=== PATIENT | female | born 1970 | race Two or more races ===

== ENCOUNTER 2016-05-29 11:44 | Emergency (ER) | payer SELFPAY ==
[2016-05-29] MEDS ORDERED: ONDANSETRON 4 MG/2 ML VIAL IVP ONE (12:10)
[2016-05-29] MEDS ORDERED: NS 1,000 ML IV ONE ×2 (12:10→13:06)
--- NOTE | 2016-05-29 12:27 | EDPHY ---
HPI/HX/ROS/PE/MDM Narrative: Chief complaint: Headache, neck pain HPI: 46-year-old type 2 diabetic presenting with 2 weeks of right-sided headache going into her right side of her neck and back. It is constant. It is an 8/10. Not had any fevers or chills. Has felt some lightheadedness associated with this but no fainting. Some nausea no vomiting. States that her blood sugars have been running very high recently. She has had increased urination but no urgency or pain. No chest pain, shortness of breath, or abdominal pain. She has been taking Advil at home with no significant relief. Denies any she head injuries or trauma. Pain was gradual in onset. Is been constant for the last 2 weeks. ROS: 10 point Review of Systems is negative except as noted in the HPI. Physical exam: Gen: Awake, Alert, No Distress HEENT: Nose: no rhinorrhea Eyes: PERRLA, EOMI Mouth: Moist mucosa She has tenderness in the muscular insertion of the trapezius on the right side of her occiput reproducing her presenting complaint. Neck: Supple, no JVD, no meningismus, right-sided trapezius and paraspinal tenderness to palpation reproducing her presenting complaint. No midline tenderness Chest: nontender, lungs clear to auscultation Heart: S1, S2 normal, no murmur Abd: Soft, non-tender, no guarding Back: no CVA tenderness, no midline tenderness Ext: no edema, non-tender Skin: no rash Neuro: CN II-XII intact, Sensation grossly intact, Strength 5/5 in bilateral upper and lower extremities ED Course: Patient is feeling significantly improved after 2 L of IV fluid and analgesia. States her headache is gone. I suspect that her headache the last 2 weeks secondary to her hyperglycemia and dehydration. Pain is Marta her light paraspinal neck. She has no meningismus. There are no features to suggest intracranial infection or bleed. She has no otherwise benign exam. She is hyperglycemic to 300s here. She has gotten 2 L of fluid. Will discharge with instructions to follow up with her primary care physician this week for better glycemic control. - Data Points Laboratory Results: Laboratory Results 05/29/16 12:20 05/29/16 12:20 05/29/16 12:20 WBC 6.09 10^3/uL (3.80-9.50) RBC 4.91 10^6/uL (4.18-5.33) Hgb 15.4 g/dL (12.6-16.3) Hct 42.7 % (38.0-47.0) MCV 87.0 fL (81.5-99.8) MCH 31.4 pg (27.9-34.1) MCHC 36.1 g/dL (32.4-36.7) RDW 11.7 % (11.5-15.2) Plt Count 230 10^3/uL (150-400) MPV 9.1 fL (8.7-11.7) Neut % (Auto) 52.7 % (39.3-74.2) Lymph % (Auto) 39.4 % (15.0-45.0) [place] % (Auto) 5.4 % (4.5-13.0) Eos % (Auto) 1.6 % (0.6-7.6) Baso % (Auto) 0.7 % (0.3-1.7) Nucleat RBC Rel Count 0.0 % (0.0-0.2) Absolute Neuts (auto) 3.21 10^3/uL (1.70-6.50) Absolute Lymphs (auto) 2.40 10^3/uL (1.00-3.00) Absolute Monos (auto) 0.33 10^3/uL (0.30-0.80) Absolute Eos (auto) 0.10 10^3/uL (0.03-0.40) Absolute Basos (auto) 0.04 10^3/uL (0.02-0.10) Absolute Nucleated RBC 0.00 10^3/uL (0-0.01) Immature Gran % 0.2 % (0.0-1.1) Immature Gran # 0.01 10^3/uL (0.00-0.10) Sodium 137 mEq/L (134-144) Potassium 4.5 mEq/L (3.5-5.2) Chloride 99 mEq/L (97-110) Carbon Dioxide 26 mEq/l (22-31) Anion Gap 12 mEq/L (8-16) BUN 13 mg/dL (7-23) Creatinine 0.7 mg/dL (0.6-1.0) Estimated GFR > 60 Glucose 366 H mg/dL (70-100) Calcium 9.4 mg/dL (8.5-10.4) Total Bilirubin 0.6 mg/dL (0.1-1.4) Conjugated Bilirubin 0.2 mg/dL (0.0-0.5) Unconjugated Bilirubin 0.4 mg/dL (0.0-1.1) AST 35 IU/L (14-46) ALT 66 H IU/L (9-52) Alkaline Phosphatase 140 H IU/L (38-126) Total Protein 7.3 g/dL (6.3-8.2) Albumin 4.0 g/dL (3.5-5.0) Medications Given: Discontinued Medications Fentanyl (Sublimaze) 50 mcg IVP ONCE ONE Stop: 05/29/16 12:40 Last Admin: 05/29/16 12:55 Dose: 50 mcg Sodium Chloride (Ns) 1,000 mls @ 0 mls/hr IV ONCE ONE PRN Reason: Wide Open Stop: 05/29/16 12:11 Last Admin: 05/29/16 12:25 Dose: 1,000 mls Sodium Chloride (Ns) 1,000 mls @ 0 mls/hr IV ONCE ONE PRN Reason: Wide Open Stop: 05/29/16 13:07 Last Admin: 05/29/16 13:06 Dose: 1,000 mls Morphine Sulfate (Morphine) 4 mg IVP ONCE ONE Stop: 05/29/16 12:25 Last Admin: 05/29/16 13:06 Dose: Not Given Ondansetron HCl (Zofran) 4 mg IVP EDNOW ONE Stop: 05/29/16 12:11 Last Admin: 05/29/16 12:25 Dose: 4 mg General Time Seen by Provider: 05/29/16 12:16 Initial Vital Signs: Initial Vital Signs Temperature (C) 36.8 C 05/29/16 11:45 Heart Rate 95 05/29/16 11:45 Respiratory Rate 18 05/29/16 11:45 Blood Pressure 155/107 H 05/29/16 11:45 O2 Sat (%) 95 05/29/16 11:45 O2 Delivery Mode Room Air Allergies/Adverse Reactions: acetaminophen [From Vicodin] Allergy (Verified 05/29/16 12:29) hydrocodone bitartrate [From Vicodin] Allergy (Verified 05/29/16 12:29) Home Medications: Medication Instructions Recorded Insulin Detemir [Levemir] 100 unit SQ 05/29/16 metFORMIN SR [Glucophage XR 500 mg 500 mg PO DAILY@1800 05/29/16 (*)] Departure - Departure Disposition: Home, Routine, Self-Care Clinical Impression: Headache, Dehydration, Hyperglycemia Condition: Good Instructions: Diabetic Hyperglycemia (ED), Managing Diabetes During Sick Days ( ED), Dehydration (ED), General Headache (ED) Additional Instructions: Follow up with your primary care physician this week for adjustments in your diabetes medications. Drink plenty of fluids. Return to the emergency depart for increasing pain, nausea, vomiting, fevers, chills, or any other concerns. Print Language: Maori
[2016-05-29] MEDS ORDERED: fentaNYL 100 MCG/2 ML INJ IVP ONE (12:39)
[2016-05-29 12:40] LABS: % IMMATURE GRANULYOCYTES 0.2 % (0.0-1.1); ABSOLUTE IMMATURE GRANULOCYTES 0.01 10^3/uL (0.00-0.10); ADD DIFF? NO; ADD MORPH? NO; ADD SCAN? NO; ATYPICAL LYMPHOCYTE FLAG 10 (0-99); FRAGMENT RBC FLAG 0 (0-99); HEMATOCRIT 42.7 % (38.0-47.0); HEMOGLOBIN 15.4 g/dL (12.6-16.3); LEFT SHIFT FLG 0 (0-99); LIPEMIA HEMOLYSIS FLAG 90 (0-99); MEAN CELL HEMOGLOBIN 31.4 pg (27.9-34.1); MEAN CELL HEMOGLOBIN CONCENTR. 36.1 g/dL (32.4-36.7); MEAN PLATELET VOLUME 9.1 fL (8.7-11.7); PLATELET CLUMPS FLAG 0 (0-99); PLATELET COUNT 230 10^3/uL (150-400); RED BLOOD CELL COUNT 4.91 10^6/uL (4.18-5.33); RED CELL DISTRIBUTION WIDTH 11.7 % (11.5-15.2)
[2016-05-29 12:59] LABS: ALANINE AMINOTRANSFERASE 66 IU/L (9-52); ALKALINE PHOSPHATASE 140 IU/L (38-126); ANION GAP 12 mEq/L (8-16); ASPARTATE AMINOTRANSFERASE 35 IU/L (14-46); BILIRUBIN,TOTAL 0.6 mg/dL (0.1-1.4); BILIRUBIN-CONJUGATED 0.2 mg/dL (0.0-0.5); BILIRUBIN-UNCONJUGATED 0.4 mg/dL (0.0-1.1); CALCIUM 9.4 mg/dL (8.5-10.4); CARBON DIOXIDE 26 mEq/l (22-31); CHLORIDE 99 mEq/L (97-110); CREATININE 0.7 mg/dL (0.6-1.0); GLOMERULAR FILTRATION RATE > 60; GLUCOSE 366 mg/dL (70-100); POTASSIUM 4.5 mEq/L (3.5-5.2); SODIUM 137 mEq/L (134-144); TOTAL PROTEIN 7.3 g/dL (6.3-8.2)
[2016-05-29 13:12] VITALS: RESP 16; TEMP 98.1
[2016-05-29 14:47] VITALS: BP 110/79; PULSE 89; O2SAT 95
== END 2016-05-29 14:15 | disposition home or self-care (01) ==
DX: R51 Headache (principal); E86.0 Dehydration; E11.65 Type 2 diabetes mellitus with hyperglycemia; Z79.4 Long term (current) use of insulin
CPT/HCPCS: 96374; J2405; J3010

== ENCOUNTER 2018-05-04 16:44 | Emergency (ER) | payer SELFPAY ==
--- NOTE | 2018-05-04 17:18 | EDPHY ---
H & P Stated Complaint: Flu-like s/s Time Seen by Provider: 05/04/18 17:17 HPI/ROS: CHIEF COMPLAINT: Fever, cough, congestion HISTORY OF PRESENT ILLNESS: The patient presents the emergency department with 3 days of fever, cough and congestion. The patient reports associated myalgias and sore throat. The patient does have history of diabetes. The patient did not get a flu shot this year. She denies any abdominal pain, vomiting or diarrhea. The patient denies rash. She does complain of a mild headache. She denies any neck stiffness or photophobia. REVIEW OF SYSTEMS: A comprehensive 10 point review of systems is otherwise negative aside from elements mentioned in the history of present illness. Source: Patient Exam Limitations: No limitations - Personal History LMP (Females 10-55): Post Menopausal Current Tetanus/Diphtheria Vaccine: Yes - Medical/Surgical History Hx Diabetes: Yes Other PMH: DM II, - Social History Smoking Status: Never smoked - Physical Exam Exam: General Appearance: Obese female, appears uncomfortable Eyes: Pupils equal and round no pallor or injection ENT, Mouth: Mucous membranes moist Respiratory: Rhonchorous breath sounds bilateral lung bases Cardiovascular: Tachycardic Gastrointestinal: Abdomen is soft and nontender, no masses, bowel sounds normal Neurological: 5/5 strength all 4 extremities Skin: Warm and dry, no rashes Musculoskeletal: Neck is supple nontender, specifically no meningeal symptoms Extremities: symmetrical, full range of motion Constitutional: Initial Vital Signs Temperature (C) 36.7 C 05/04/18 17:08 Heart Rate 109 H 05/04/18 17:08 Respiratory Rate 18 05/04/18 17:08 Blood Pressure 114/85 H 05/04/18 17:08 O2 Sat (%) 95 05/04/18 17:08 O2 Delivery Mode Room Air Allergies/Adverse Reactions: acetaminophen [From Vicodin] Allergy (Verified 05/04/18 17:10) hydrocodone bitartrate [From Vicodin] Allergy (Verified 05/04/18 17:10) Home Medications: Medication Instructions Recorded Insulin Detemir [Levemir] 100 unit SQ 05/29/16 metFORMIN SR [Glucophage XR 500 mg 500 mg PO DAILY@1800 05/29/16 (*)] Albuterol [Ventolin Hfa Inhaler] 2 puffs IH QID PRN #1 mdi 05/04/18 Oseltamivir Phosphate [Tamiflu] 75 mg PO BID #10 cap 05/04/18 Medical Decision Making - Diagnostics EKG Interpretation: EKG: Complete interpretation has been separately recorded in the [facility] archive. Summary impression: Sinus tachycardia, rate 104, no ST segment elevation or depression Imaging Results: Imaging Impressions Chest X-Ray 05/04/18 17:20 Impression: Normal chest. ED Course/Re-evaluation: The patient presents to the ED with fever, cough and congestion for the past 2 days. Patient's chest x-ray demonstrates no evidence of an obvious pneumonia. The patient has no evidence of septic physiology. Patient does have influenza a. She is currently a diabetic. The patient will be given a prescription for Tamiflu and albuterol. The patient is advised to return to the ED for markedly worsening respiratory symptoms, vomiting, increasing pain or other concerns. The patient was re-evaluated by myself at 6:30 p.m. and is in no acute distress. Differential Diagnosis: Differential diagnosis considered includes asthma, bronchitis, pneumonia, influenza - Data Points Laboratory Results: Laboratory Results 05/04/18 17:29 05/04/18 17:29 05/04/18 05/04/18 05/04/18 17:35 17:29 17:29 WBC 8.07 10^3/uL 10^3/uL (3.80-9.50) RBC 4.85 10^6/uL 10^6/uL (4.18-5.33) Hgb 15.3 g/dL g/dL (12.6-16.3) Hct 42.2 % % (38.0-47.0) MCV 87.0 fL fL (81.5-99.8) MCH 31.5 pg pg (27.9-34.1) MCHC 36.3 g/dL g/dL (32.4-36.7) RDW 11.5 % % (11.5-15.2) Plt Count 157 10^3/uL 10^3/uL (150-400) MPV 9.2 fL fL (8.7-11.7) Neut % (Auto) 76.6 % H % (39.3-74.2) Lymph % (Auto) 16.4 % % (15.0-45.0) [place] % (Auto) 6.4 % % (4.5-13.0) Eos % (Auto) 0.0 % L % (0.6-7.6) Baso % (Auto) 0.2 % L % (0.3-1.7) Nucleat RBC Rel Count 0.0 % % (0.0-0.2) Absolute Neuts (auto) 6.18 10^3/uL 10^3/uL (1.70-6.50) Absolute Lymphs (auto) 1.32 10^3/uL 10^3/uL (1.00-3.00) Absolute Monos (auto) 0.52 10^3/uL 10^3/uL (0.30-0.80) Absolute Eos (auto) 0.00 10^3/uL L 10^3/uL (0.03-0.40) Absolute Basos (auto) 0.02 10^3/uL 10^3/uL (0.02-0.10) Absolute Nucleated RBC 0.00 10^3/uL 10^3/uL (0-0.01) Immature Gran % 0.4 % % (0.0-1.1) Immature Gran # 0.03 10^3/uL 10^3/uL (0.00-0.10) Sodium 130 mEq/L L mEq/L (135-145) Potassium 3.6 mEq/L mEq/L (3.5-5.2) Chloride 93 mEq/L L mEq/L (97-110) Carbon Dioxide 27 mEq/l mEq/l (22-31) Anion Gap 10 mEq/L mEq/L (6-14) BUN 11 mg/dL mg/dL (7-23) Creatinine 0.5 mg/dL L mg/dL (0.6-1.0) Estimated GFR > 60 Glucose 365 mg/dL H mg/dL (70-100) Calcium 8.8 mg/dL mg/dL (8.5-10.4) Nasal Influenza A PCR FLU A DETECTED H (NEGATIVE) Nasal Influenza B PCR NEGATIVE FOR FLU B (NEGATIVE) Medications Given: Discontinued Medications Albuterol/Ipratropium (Duoneb) 3 ml IH EDNOW ONE Stop: 05/04/18 17:21 Last Admin: 05/04/18 17:35 Dose: 3 ml Sodium Chloride (Ns) 1,000 mls @ 0 mls/hr IV ONCE ONE; Wide Open PRN Reason: Protocol Stop: 05/04/18 17:21 Last Admin: 05/04/18 17:35 Dose: 1,000 mls Departure - Departure Disposition: Home, Routine, Self-Care Clinical Impression: Influenza A, Bronchitis Condition: Good Instructions: Influenza (ED) Additional Instructions: 1. Take Tamiflu as directed for influenza. 2. Please use albuterol inhaler up to every 2-4 hours as needed for cough. 3. Take Ibuprofen or Motrin 600 mg by mouth three times a day. 4. Return to the ED for markedly worsening respiratory symptoms, severe pain, vomiting, severe headache or other concerns. Referrals: Agnes Velazquez PA [Primary Care Provider] - As per Instructions
[2018-05-04] MEDS ORDERED: NS 1,000 ML IV ONE (17:20)
[2018-05-04] MEDS ORDERED: IPRATROPIUM/ALBUTEROL 3 ML DEYVIAL IH ONE (17:20)
[2018-05-04 17:43] LABS: PLATELET COUNT 157 10^3/uL (150-400)
--- NOTE | 2018-05-04 17:50 | CPEKG ---
Test Reason : OPEN Blood Pressure : / mmHG Vent. Rate : 104 BPM Atrial Rate : 104 BPM P-R Int : 169 ms QRS Dur : 079 ms QT Int : 328 ms P-R-T Axes : 080 054 059 degrees QTc Int : 432 ms Sinus tachycardia Low voltage, extremity leads Confirmed by Anthony Camarena ([id number]) on 05/04/2018 5:49:48 PM Referred By: Confirmed By:Anthony Camarena
[2018-05-04 19:12] VITALS: BP 132/85
== END 2018-05-04 19:10 | disposition home or self-care (01) ==
DX: J09.X2 Influenza due to identified novel influenza A virus with other respiratory manifestations (principal); J40 Bronchitis, not specified as acute or chronic; E11.9 Type 2 diabetes mellitus without complications